=== PATIENT | female | born 1980 | race Caucasian/White ===

== ENCOUNTER → 2017-04-27 | Outpatient (CLI) | payer BC ==
[~2017-04-27] MED LIST: PRENTAB26 PO
== END | disposition home or self-care (01) ==
LOC: C.LABBC 11:44
PROVIDERS: ATTEND Nurse Practitioner Adult Health
DX: B95.0 Streptococcus, group A, as the cause of diseases classified elsewhere (principal)

== ENCOUNTER → 2018-01-04 | Outpatient (CLI) | payer BC | END | disposition home or self-care (01) | LOC: C.LABBC 12:02 | PROVIDERS: ATTEND Physician Assistant Medical | DX: J02.9 Acute pharyngitis, unspecified (principal) ==

== ENCOUNTER → 2018-01-04 | Outpatient (CLI) | payer BC | END | disposition home or self-care (01) | LOC: C.LABBC 09:28 | PROVIDERS: ATTEND Nurse Practitioner Adult Health | DX: Z00.00 Encounter for general adult medical examination without abnormal findings (principal) ==

== ENCOUNTER 2023-08-11 07:49 | Inpatient (IN) ==
[2023-08-11] MEDS ORDERED: LIDOCAINE 1% LOCAL 20 ML VIAL INFIL PRN (07:54)
[2023-08-11] MEDS ORDERED: OXYTOCIN 30 UNITS/NSS 30 UNITS/500 ML BAG IV PRN ×2 (07:54→08:19)
--- NOTE | 2023-08-11 07:58 | History & Physical Report ---
Date of Service August 11, 2023 Assessment & Plan (1) Elderly multigravida: (2) Encounter for assessment: Plan Will admit patient for induction of labor Fetus cat 1 Rh positive mother GBS negative Rubella equivocal; need MMR vaccine pp Monet balloon placement unsuccessful Epidural prn Pitocin as needed Patient in agreement Admission and Anticipated Discharge Date Admission Date: August 11, 2023 History of Present Illness Chief Complaint: IOL Primary Care Provider: Seferino Shaffer DO Ortega is a 43 y/o female with no significant PMHx who is currently at IUP 40 1/7 WGA with an AJITH 08/10/23 as determined by certain LMP who is here for IOL due to post dates. (+) movement (-) contractions (-) fluid loss (-) bloody show External FHT and external uterine monitors used * Category 1 tracing * Moderate FHT variability Had regular appointments since 1st trimester. OB Labs: Blood Type O Positive 07/22/23 Antibody Screen NEGATIVE 07/22/23 Hemoglobin 10.9 g/dl (12.0-16.0) L 07/22/23 Hematocrit 33.6 % (37.0-47.0) L 07/22/23 Mean Corpuscular Volume 80.2 fL (80.0-100.0) 07/22/23 Platelet Count 215 K/uL (130-400) 07/22/23 Rubella IgG Antibody Equivocal (Immune) L 01/07/23 Rapid Plasma Reagin Nonreactive (Nonreactive) 01/07/23 Hepatitis B Surface Antigen. NON-REACTIVE (NON-REACTIVE) 01/07/23 Hepatitis C Antibody (EIA) NON-REACTIVE (NON-REACTIVE) 01/07/23 HIV (1&2) Ag and Ab Confirmation NON-REACTIVE (NON-REACTIVE) 01/07/23 Glucose 1 Hour 50 gm Load 136 mg/dl (70-130) H 03/25/23 Maternal Serum Alpha Fetoprotein 29.5 ng/mL 03/25/23 OB Optional Labs: Chlamydia trachomatis RNA Not Detected (NotDetected) 01/07/23 Neisseria gonorrhoeae RNA Not Detected (NotDetected) 01/07/23 Thyroid Stimulating Hormone (TSH) 1.540 uIu/ml (0.300-4.500) 12/28/22 Alpha Fetoprotein Triple Screen SEE NOTE 03/25/23 Labs Reviewed: low risk panorama--[facility] genetic screening at [place] nl 2 hr gtt. Allergies Allergy/AdvReac Type Severity Reaction Status Date / Time No Known Drug Allergies Allergy Unknown Verified 08/11/23 08:45 Home Medications Medication Instructions Recorded Confirmed Type fluticasone propionate 50 1 sprays intranasal BID #1 g 11/28/18 08/11/23 History mcg/actuation nasal spray,suspension loratadine 10 mg tablet (Claritin) 10 mg PO DAILY PRN Allergy Symptoms 12/08/18 08/11/23 History prenat.vits,ara,[id number] 1 tab PO DAILY 10/21/21 08/11/23 History Patient History Medical History Allergic rhinitis Chronic idiopathic urticaria History of genital warts History of varicella Obesity (BMI 30-39.9) Seasonal rhinitis Surgical History History of tooth extraction Family History Unknown Multiple gestation Mother History of thyroid surgery Non-Hodgkin lymphoma Pancreatic cancer Aunt Diabetes Breast cancer Father Hypertension Denies family history of Ovarian cancer Prostate cancer Myocardial infarction Lung cancer Colorectal cancer Stroke Social History Smoking Status: Never smoker Second Hand Exposure: No; Do You Dip or Chew Tobacco: No; Tobacco Cessation Education Requested by Patient: No Hx Alcohol Use: No Hx Substance Use: No Preferred Language: Panamanian Communication Ability: Effective Visual Impairment: Limited Hearing Ability: Normal Social Media Intern Required: No Beliefs That Will Affect Care: None marital status: marital status details: Jatin Caba (41) [phone] Current Living Situation: Spouse and Family Current Living Situation Comment: lives with spouse, 2 children current occupational status: employed 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 Date GA wks Lbr Lgth wt Sex Type del Anes Place Del Prov ? Comment 08/24/09 40 15 6-12 M Epid ural [facility] Dr. Alvarez No 09/23/11 41 3 8-2 M Epidu ral [facility] Dr. Mahajan No 10/30/21 8 Aborted-Spontaneous [employer]ER History Last menstrual period: Yes Menstrual reliability: definite Flow: normal Menstrual regularity: regular Monthly: Yes Age at menarche: 14 On control pills at conception: No Date of positive home test: 12/05/22 Menstrual history comments: cycles 28 days Details: last pap 02/27/[address] Mahajan Review of Systems no fever, no chills and no sweats Denies changes in vision. Denies shortness of breath or respiratory difficulty. no chest pain and no palpitations no dysuria no headache(s) Physical Exam Physical Exam: General: Alert, oriented x3. Afebrile. No acute distress. Eyes: Pupils equal and reactive to light bilaterally. Extraocular movement intact bilaterally. Cardiac: Regular rate and rhythm, no murmurs/rubs/gallops. Respiratory: Clear to auscultation bilaterally a/p, no wheezes/rales/rhonchi. No increased work of breathing. Symmetrical chest rise. No respiratory distress. Abdomen: Gravid; FHR baseline 130 - 135 bpm; Position: Vertex Pelvic: 1 / thick / -[address] Mahajan Lower Extremities: Unilateral LE swelling in right leg with calf tenderness with palpation. No swelling in left LE but does have some calf tenderness that is in lesser intensity compared to right LE. Supervising Physician Co-Signing Physician Notes Resident Physician Supervision Note: I interviewed and examined the patient. Discussed with [Name of resident] and agree with findings and plan as documented in the note. Any exceptions or clarifications are listed here: [None] Documented By: Bimal Mahajan MD, FACOG
[2023-08-11 08:25] LABS: Hematocrit (blood only) 34.1 % (37.0-47.0); Hemoglobin 11.2 g/dl (12.0-16.0); Mean Corpuscular Hgb Conc 32.8 g/dL (32.0-36.0); Mean Corpuscular Volume 79.3 fL (80.0-100.0); Mean Platelet Volume 12.2 fL (9.4-12.4); Platelet Count 207 K/uL (130-400); RDW Coefficient of Variation 13.9 % (11.5-14.5); RDW Standard Deviation 39.5 fL (36.4-46.3); White Blood Count 6.55 K/ul (4.8-10.8)
--- NOTE | 2023-08-11 08:31 | Obstetrical Progress Note ---
Date of Service August 11, 2023 Assessment & Plan Admission and Anticipated Discharge Date Admission Date: August 11, [address] a cervical Monet under sterile conditions but the bulb kept falling out she is 1 cm and thick will start Pitocin estimated weight 7-8 pounds PG Care Time/CCT Total # of Minutes Spent Total Time Spent with Patient: Total time spent is greater than 50% in coordination of care (as documented) at patient's floor/unit and/or counseling patient: Coding Level of Care Code None
[2023-08-11] MEDS: LACTATED RINGER'S 1,000 ML IV PRN (08:56)
[2023-08-11] MEDS: OXYTOCIN 30 UNITS/NSS 30 UNITS/500 ML BAG IV PRN (08:57)
[2023-08-11] MEDS: LIDOCAINE 2%/EPINEPHRINE 1:200,000 20 ML PF ONE (16:35)
[2023-08-11] MEDS: fentANYL 2 MCG/ML BUPIVacaine 0.125%-NSS 100ML BAG ONE (16:35)
[2023-08-11] MEDS: BUPIVACAINE 0.25% PF 30 ML VIAL ONE (16:35)
[2023-08-11] MEDS ORDERED: NALBUPHINE HCL 5 MG in SYRINGE 0 ML IV PRN (16:40)
[2023-08-11] MEDS ORDERED: LIDOCAINE 2% MPF LOCAL 5 ML VIAL EPI PRN (16:40)
[2023-08-11] MEDS ORDERED: NALOXONE HCL 1 MG in SODIUM CHLORIDE 0.9% 1,000 ML IV PRN (16:40)
[2023-08-11] MEDS ORDERED: SODIUM CHLORIDE 0.9% PF INJ 10 ML VIAL EPI PRN (16:40)
[2023-08-11] MEDS ORDERED: BUPIVACAINE 0.25% PF 30 ML VIAL EPI PRN (16:40)
[2023-08-11] MEDS ORDERED: ROPIVACAINE 0.5% PF 5 MG/ML 20 ML VIAL EPI PRN (16:40)
[2023-08-11] MEDS ORDERED: fentaNYL citrate PF 100 MCG/2 ML VIAL EPI PRN (16:40)
[2023-08-11] MEDS ORDERED: ePHEDrine sulfate 50 MG/ML AMP IV PRN (16:40)
[2023-08-11] MEDS ORDERED: ONDANSETRON INJ 2 MG/ML 2 ML VIAL IV PRN (16:40)
[2023-08-11] MEDS ORDERED: diphenhydrAMINE 50 MG/ML VIAL IV PRN (16:40)
[2023-08-11] MEDS ORDERED: NALOXONE HCL 0.4 MG/1 ML VIAL/CARP IV PRN (16:40)
--- NOTE | 2023-08-11 16:40 | Anesthesiology Consultation ---
Date of Service August 11, 2023 Assessment & Plan Chart Review Chart Review: Patient NOT seen in Pre Admission Testing and Acceptable Risk for Labor Epidural Consults Requested none ASA ASA2 Proposed Anesthesia Anesthesia Type: Labor Epidural Risk / Benefits Reviewed With: PT / POA / Parent / Guardian, Accepts Plan and Informed Consent Obtained History Height/Weight Height: 5 ft 3 in Weight: 94.801 kg Allergies Allergy/AdvReac Type Severity Reaction Status Date / Time No Known Drug Allergies Allergy Unknown Verified 08/11/23 08:45 Medications Home Medications Medication Instructions Recorded Confirmed Last Taken fluticasone propionate 50 1 sprays intranasal BID #1 g 11/28/18 08/11/23 08/04/23 mcg/actuation nasal 0900 spray,suspension loratadine 10 mg tablet (Claritin) 10 mg PO DAILY PRN Allergy Symptoms 12/08/18 08/11/23 08/11/23 0700 prenat.vits,ara,[id number]-[id number]-[id number] 1 tab PO DAILY 10/21/21 08/11/23 08/11/23 0700 Active Medications Generic Name Dose Route Start Last Admin Trade Name Freq PRN Reason Stop Dose Admin Lactated Ringer's 1,000 mls @ 125 mls/hr 08/11/23 07:54 08/11/23 15:38 Lr IV 08/13/23 07:53 999 mls/hr .Q8H PRN Administration L&D Protocol Protocol Oxytocin 30 units in 500 mls @ 10 mls/hr 08/11/23 08:25 08/11/23 15:11 Pitocin 30 Units/Nss IV 08/13/23 08:24 0.6 units/hr .Q24H PRN 10 mls/hr Labor Induction/Augmentation Titration Protocol 0.6 UNITS/HR Past Medical History Medical History Allergic rhinitis Chronic idiopathic urticaria History of genital warts History of varicella Obesity (BMI 30-39.9) Seasonal rhinitis Exercise / Class Metabolic Activity II 4-5 Yardwork/Stairs/Walk up hill Past Family History Family History Unknown Multiple gestation Mother History of thyroid surgery Non-Hodgkin lymphoma Pancreatic cancer Aunt Diabetes Breast cancer Father Hypertension Denies family history of Ovarian cancer Prostate cancer Myocardial infarction Lung cancer Colorectal cancer Stroke Past Surgical History Surgical History History of tooth extraction Past Anesthesia History No Hx of Anesthesia Complications and No Family Hx of Anesthesia Complications History of PONV No Hx of PONV and No Hx of Motion Sickness Social History Smoking Status: Never smoker Do You Dip or Chew Tobacco: No Hx Alcohol Use: No Hx Substance Use: No Physical Exam Vital Signs Last Vital Signs Temp 36.9 C 08/11/23 13:05 Pulse 107 H 08/11/23 16:36 Resp 16 08/11/23 13:05 BP 127/77 08/11/23 16:36 Pulse Ox 99 08/11/23 16:35 ENMT Mouth: no dentition abnormality Thyromental Distance: > or= 3.5 Finger Breadths Mallampati Class: II Neck normal visual inspection Respiratory normal respiratory effort Auscultation: lungs clear to auscultation bilaterally Cardiovascular Rate/Rhythm: regular rate and regular rhythm Psychiatric Orientation: alert Testing Laboratory Results 08/11/23 08:02 Blood Type Cancelled 08/11/23 08:02 Blood Type O Positive 08/11/23 08:02 Antibody Screen Cancelled 08/11/23 08:02 Antibody Screen NEGATIVE 08/11/23 08:02
[2023-08-11] MEDS: ACETAMINOPHEN 325 MG TAB PO PRN (19:12)
[2023-08-11] MEDS: fentaNYL citrate PF 100 MCG/2 ML VIAL ONE (19:16)
[2023-08-11] MEDS: ePHEDrine sulfate 50 MG/ML AMP ONE (19:16)
[2023-08-11] MEDS: SODIUM CHLORIDE 0.9% PF INJ 10 ML VIAL ONE (19:18)
[2023-08-11] MEDS: fentaNYL citrate PF 100 MCG/2 ML VIAL EPI STA (20:05)
[2023-08-11] MEDS: LIDOCAINE 2%/EPINEPHRINE 1:200,000 20 ML PF EPI STA (20:05)
[2023-08-11] MEDS: BUPIVACAINE 0.25% PF 30 ML VIAL EPI STA (20:05)
[2023-08-11] MEDS: SODIUM CHLORIDE 0.9% PF INJ 10 ML VIAL EPI STA (20:06)
[2023-08-12] MEDS ORDERED: GENTAMICIN CONSULT ACTIVE PRN (00:36)
--- NOTE | 2023-08-12 00:40 | Labor Progress Brief Note ---
Date of Service August 12, 2023 Over the last hour the patient has had some increased shaking her temperature is afebrile however the patient feels warm she is also having a tachycardia approximately 180 with intermittent variable decelerations. Her contraction pattern is good checked her she is 6 cm 0 station so she is making recently rapid change at this stage despite a lack of temperature on the exam and she palpates is quite warm clinically so we will start antibiotics with an elevated tachycardia and clinically she feels warm for chorioamnionitis I discussed that the tracing while not ideal and hoping for rapid progress as this is her third baby with 2 prior vaginal deliveries will monitor very closely Assessment & Plan Admission and Anticipated Discharge Date Admission Date: August 11, 2023 Results & Data Vital Signs (Past 12 Hours) Vital Signs Temp Pulse Resp BP Pulse Ox 08/12/23 00:36 123 H 99 08/12/23 00:31 122 H 97 08/12/23 00:26 124 H 98 08/12/23 00:21 115 H 98 08/12/23 00:16 98 08/12/23 00:16 116 H 08/12/23 00:16 115 H 136/66 08/12/23 00:11 111 H 99 08/12/23 00:06 116 H 99 08/12/23 00:05 18 08/12/23 00:05 98.2 F 18 08/12/23 00:01 113 H 98 08/12/23 00:00 108 H 133/63 08/11/23 23:56 112 H 99 08/11/23 23:51 110 H 99 08/11/23 23:48 121 H 135/61 08/11/23 23:46 112 H 100 08/11/23 23:45 119 H 82 L 08/11/23 23:42 22 08/11/23 23:42 99.3 F 22 08/11/23 23:41 127 H 99 08/11/23 23:36 123 H 100 08/11/23 23:31 127 H 169/98 H 100 08/11/23 23:26 133 H 97 08/11/23 23:22 133 H 92 08/11/23 23:21 134 H 100 08/11/23 23:16 146 H 99 08/11/23 23:14 148 H 92 08/11/23 23:11 132 H 93 08/11/23 23:10 22 08/11/23 23:10 98.2 F 22 08/11/23 23:09 119 H 91 08/11/23 23:06 103 H 100 08/11/23 23:01 101 H 108/57 L 100 08/11/23 22:56 91 H 100 08/11/23 22:51 94 H 100 08/11/23 22:46 99 08/11/23 22:46 98 H 08/11/23 22:46 98 H 127/61 08/11/23 22:44 101 H 91 08/11/23 22:41 98 H 98 08/11/23 22:36 93 H 100 08/11/23 22:31 97 H 99 08/11/23 22:30 95 H 114/63 08/11/23 22:26 97 H 98 08/11/23 22:21 99 H 100 08/11/23 22:16 99 08/11/23 22:16 117 H 08/11/23 22:16 114 H 138/73 90 08/11/23 22:11 102 H 100 08/11/23 22:10 94 H 88 L 08/11/23 22:06 96 H 100 08/11/23 22:01 91 H 119/59 L 100 08/11/23 21:56 84 98 08/11/23 21:51 90 97 08/11/23 21:46 85 97 08/11/23 21:45 85 109/58 L 08/11/23 21:41 85 96 08/11/23 21:36 88 96 08/11/23 21:31 86 97 08/11/23 21:30 90 108/56 L 92 08/11/23 21:26 95 H 96 08/11/23 21:21 89 97 08/11/23 21:16 84 97 08/11/23 21:15 87 109/61 08/11/23 21:11 108 H 99 08/11/23 21:06 98 H 99 08/11/23 21:01 98 08/11/23 21:01 93 H 08/11/23 21:01 100 H 112/65 08/11/23 20:56 86 97 08/11/23 20:51 98 H 97 08/11/23 20:47 97.7 F 110 H 18 125/70 08/11/23 20:46 107 H 98 08/11/23 20:41 104 H 97 08/11/23 20:37 110 H 99 08/11/23 20:32 108 H 98 08/11/23 20:30 112 H 103/66 08/11/23 20:26 102 H 98 08/11/23 20:21 106 H 99 08/11/23 20:17 110 H 99 08/11/23 20:15 102 H 126/69 08/11/23 20:12 101 H 99 08/11/23 20:07 108 H 99 08/11/23 20:02 105 H 99 08/11/23 20:00 115 H 136/65 08/11/23 19:57 106 H 99 08/11/23 19:52 106 H 99 08/11/23 19:47 105 H 99 08/11/23 19:46 101 H 135/72 08/11/23 19:42 99 H 98 08/11/23 19:37 106 H 98 08/11/23 19:32 95 H 123/71 100 08/11/23 19:27 103 H 100 08/11/23 19:22 99 H 99 08/11/23 19:17 101 H 98 08/11/23 19:12 105 H 99 08/11/23 19:07 90 99 08/11/23 19:02 96 H 98 08/11/23 19:00 98.2 F 18 08/11/23 19:00 98 H 135/74 08/11/23 18:57 101 H 99 08/11/23 18:52 99 H 98 08/11/23 18:47 87 98 08/11/23 18:45 86 103/58 L 91 08/11/23 18:42 87 98 08/11/23 18:37 90 98 08/11/23 18:32 88 98 08/11/23 18:30 78 118/58 L 08/11/23 18:27 85 98 08/11/23 18:22 85 98 08/11/23 18:17 94 H 99 08/11/23 18:16 83 119/59 L 08/11/23 18:11 80 98 08/11/23 18:06 92 H 99 08/11/23 18:03 95 H 91 08/11/23 18:01 89 100 08/11/23 18:00 98.3 F 08/11/23 18:00 86 109/56 L 08/11/23 17:56 85 100 08/11/23 17:51 86 98 08/11/23 17:46 87 96 08/11/23 17:45 81 121/67 08/11/23 17:40 94 H 97 08/11/23 17:36 86 98 08/11/23 17:32 86 91 08/11/23 17:31 86 114/69 08/11/23 17:30 84 96 08/11/23 17:26 90 96 08/11/23 17:20 87 96 08/11/23 17:15 86 117/65 97 08/11/23 17:10 88 97 08/11/23 17:05 95 H 99 08/11/23 17:01 98.4 F 16 08/11/23 17:01 83 120/62 08/11/23 17:00 87 97 08/11/23 16:55 82 97 08/11/23 16:50 88 96 08/11/23 16:45 115 H 99 08/11/23 16:42 105 H 129/61 08/11/23 16:40 96 H 127/66 98 08/11/23 16:38 96 H 127/69 08/11/23 16:36 107 H 127/77 08/11/23 16:35 104 H 99 08/11/23 16:34 93 H 141/83 H 08/11/23 16:32 96 H 152/82 H 08/11/23 16:30 96 H 98 08/11/23 16:25 90 95 08/11/23 16:21 90 171/94 H 08/11/23 16:20 91 H 100 08/11/23 15:23 82 161/89 H 08/11/23 15:11 91 H 163/106 H 08/11/23 13:37 89 143/79 H 08/11/23 13:23 93 H 144/82 H 08/11/23 13:13 91 H 141/80 H 08/11/23 13:05 98.4 F 16 Coding Level of Care Code None
[2023-08-12] MEDS ORDERED: AMPICILLIN SOD 1 GM VIAL IV SCH ×2 (00:45→03:30)
[2023-08-12] MEDS: AMPICILLIN 2,000 MG in SODIUM CHLOR 0.9% MINI-B 100 ML IV SCH ×2 (01:03→07:45)
[2023-08-12] MEDS: fentANYL 2 MCG/ML BUPIVacaine 0.125%-NSS 100ML BAG EPI PRN (01:11)
[2023-08-12] MEDS: DEXTROSE 5% IV STA (01:38)
[2023-08-12] MEDS: GENTAMICIN SULFATE IV STA (01:38)
--- NOTE | 2023-08-12 03:17 | Delivery Summary ---
Vaginal Delivery Summary Date of Service August 12, 2023 Vaginal Delivery Summary and 2nd Degree LAC Spontaneous vaginal delivery the patient rapidly progressed to fully dilated and then delivered a baby in occiput anterior position on 1 push she had some thin meconium at the end no nuchal cord but there was a body cord baby was delivered without excess effort easy delivery live vigorous female infant cord clamped and cut cord gases obtained cord blood obtained placenta removed with traction IV Pitocin started second-degree tear repaired with 3-0 Vicryl sponge and instrument counts correct estimated blood loss 100 mL MNPG Vaginal Delivery Charge Delivery Type Details: and 2nd Degree LAC
[2023-08-12 03:19] LABS: Base Excess Cord Arterial Bld -2.5 mEq/L (-9-1.8); Base Excess Cord Venous Blood -2.9 mEq/L (-7.7-1.9); CO2 Cord Arterial Blood 55 mmHg (39.1-73.5); Cord Venous Blood HCO3 21 mmol/L (18.4-26.8); Cord Venous Blood PCO2 33 mmHg (30.4-57.2); Cord Venous Blood PO2 30 mmHg (14.1-43.3); Cord Venous Blood pH 7.41 (7.20-7.44); HCO3 Cord Arterial Blood 25 mmol/L (19.7-28.5); O2 Saturation Cord Venous Bld 65.5 % (<68); Oxygen Sat Cord Arterial Blood < 60.0 % (<60); PO2 Cord Arterial Blood < 20 mmHg (4.1-31.7); pH Cord Arterial Blood 7.27 (7.1-7.38)
[2023-08-12] MEDS ORDERED: OXYTOCIN 30 UNITS/NSS 30 UNITS/500 ML BAG IV PRN (03:36)
[2023-08-12] MEDS ORDERED: ACETAMINOPHEN 325 MG TAB PO PRN (03:36)
[2023-08-12] MEDS ORDERED: HYDROCORTISONE ACETATE 25 MG SUPP PR PRN (03:36)
[2023-08-12] MEDS ORDERED: Nursing to Pharmacy Communication SCH (04:00)
--- NOTE | 2023-08-12 04:49 | Anesthesia Procedure Note ---
Date of Service August 12, 2023 Anesthesia Post Epidural Note Vital Signs Vital Signs: Temp Pulse Resp BP Pulse Ox 37.2 C 101 H 18 119/57 L 98 08/12/23 02:29 08/12/23 04:45 08/12/23 04:15 08/12/23 04:45 08/12/23 02:41 Pain Intensity Abdomen: Pain Intensity: 9 Notes Mental Status: alert / awake / arousable Nausea / Vomiting: adequately controlled Pain: adequately controlled Airway Patency, RR, SpO2: stable & adequate BP & HR: stable & adequate Hydration State: stable & adequate Neuraxial Anesthesia: was administered and sensory block is resolving Anesthetic Complications: no major complications apparent and Pt Satisfied with anesthetic care Epidural: Removed without complications and With tip intact
[2023-08-12] MEDS: BENZOCAINE 20% SPRY 85 APPLN/85 GM CAN EXT PRN (04:55)
[2023-08-12] MEDS: IBUPROFEN 600 MG TAB PO PRN (04:55)
[2023-08-12] MEDS: DIPHTHER/TETAN/PERTUS Vaccine (Tdap, Adol/Adult) 0.5mL IM ONE (04:56)
[2023-08-12] MEDS ORDERED: SODIUM CHLORIDE 0.9% 250 ML IV PRN (05:29)
[2023-08-12 08:15] LABS: Creatinine Clr Calc Pharmacy 131.6 ml/min; Est GFR (African American) 129.6 ml/min; Est GFR (Non-African American) 111.8 ml/min
[2023-08-12] MEDS: DOCUSATE SODIUM 100 MG CAP PO SCH (08:41)
[2023-08-12] MEDS: PRENATAL VITAMIN 1 TAB PO SCH (08:41)
[2023-08-12] MEDS: MEASLES, MUMPS & RUBELLA VIRUS VACCINE (MMR) VIAL SQ ONE (13:27)
--- NOTE | 2023-08-12 15:38 | Pharmacy Report ---
Pharmacy PK ABX Note - Date of Service August 12, 2023 - Assessment and Plan Assessment 43 year old F receiving gentamicin/ampicillin for treatment of infection. Day # 1 of antimicrobial therapy. Plan * Maintenance dose: gentamicin 475 mg IV every 24 hours * Will order a level if continued beyond 48 hours Pharmacy will continue to follow and will adjust dose/frequency as necessary. Thank you. Pharmacy has transitioned to AUC monitoring for vancomycin. AUC/HOWIE is the preferred PK/PD target and is associated with decreased risk of nephrotoxicity compared to traditional trough targets.
[2023-08-13] MEDS: GENTAMICIN SULFATE IV SCH (02:16)
[2023-08-13] MEDS: DEXTROSE 5% IV SCH (02:16)
[2023-08-13 06:56] LABS: Hemoglobin 10.1 g/dl (12.0-16.0); Mean Corpuscular Hgb Conc 32.6 g/dL (32.0-36.0); Mean Corpuscular Volume 79.7 fL (80.0-100.0); Platelet Count 176 K/uL (130-400); RDW Coefficient of Variation 14.3 % (11.5-14.5); RDW Standard Deviation 41.1 fL (36.4-46.3); Red Blood Count 3.89 M/uL (4.20-5.40); White Blood Count 12.67 K/ul (4.8-10.8)
[2023-08-13 07:18] LABS: Creatinine Clr Calc Pharmacy 157.3 ml/min; Est GFR (African American) 137.5 ml/min; Est GFR (Non-African American) 118.6 ml/min
--- NOTE | 2023-08-13 08:37 | Obstetrical Progress Note ---
Date of Service <Verena Lora MD - Last Filed: 08/13/23 08:37> August 13, 2023 Assessment & Plan <Verena Lora MD - Last Filed: 08/13/23 08:37> (1) Encounter for assessment: Plan Patient with the above mentioned history and findings was evaluated at bedside and found awake, alert, oriented in all spheres, afebrile, and in no acute distress. Vital signs showed no fever and blood pressures remained stable. She is s/p 24 hours of amp/Gent for management of chorioamnionitis. Her blood type is O pos and today's hemoglobin is adequate at 10.1 g/dL. Serologies are negative for GBS and patient is Rubella equivocal (given MMR vaccine prior to dh). Overall, patient is doing well clinically and meeting the desired milestone for her course. Therefore, will discharge patient today. Patient was counselled on discharge instructions. She is to make an appointment with her OB for 6 weeks after discharge for follow up evaluation. All questions were answered. <Nura Kaufman MD - Last Filed: 08/13/23 08:39> (1) Encounter for assessment: Subjective <Verena Lora MD - Last Filed: 08/13/23 08:37> Inocencia is a 43 y/o female who is now PPD # 1 following at 40+ weeks. Reports feeling well overall this morning. Refers mild abdominal cramping & 2/10 pain well managed on analgesics. Voiding spontaneously. Tolerating meals overnight and able to ambulate some. Has passed has and has had bm. Some persistent lochia with some improvement this morning. . Constitutional: no fever, no chills or no sweats Denies shortness of breath or difficulty breathing Cardiovascular: no chest pain or no palpitations Breast: no breast pain Genitourinary (female): no dysuria Neurologic: no headache(s) Denies changes in vision Physical Exam <Verena Lora MD - Last Filed: 08/13/23 08:37> General: Alert. Oriented to person, time, and place. Afebrile. No acute distress. Cardiac: Regular rate and rhythm, no murmurs/rubs/gallops. Respiratory: Clear to auscultation bilaterally a/p, no wheezes/rales/rhonchi. No increased work of breathing. Symmetrical chest rise. No respiratory distress. Abdomen: Soft, nontender, nondistended. Bowel sounds present. Uterus: Uterine fundus firm, non tender, and palpable below umbilicus. Lower Extremities: Mild bilateral LE swelling. No deep calf pain. Charles's negative bilaterally. Psych: Euthymic affect. Mood and affect congruence. Regular speech rate and content. Results & Data <Verena Lora MD - Last Filed: 08/13/23 08:37> Vital Signs (Past 12 Hours) Vital Signs Temp Pulse Resp BP Pulse Ox O2 Del Method 08/13/23 01:15 36.6 C 83 18 124/74 98 Room Air Supervising Physician <Nura Kaufman MD - Last Filed: 08/13/23 08:39> Co-Signing Physician Notes Patient seen with resident and agree with the above findings and plan. Stable for discharge as preferred
[2023-08-13] MEDS ORDERED: bisacodyL 5 MG TABEC PO SCH (20:00)
[2023-08-14] MEDS ORDERED: bisacodyL 10 MG SUPP PR PRN (03:36)
== END 2023-08-13 16:15 | disposition home or self-care (01) | DRG 805 ==
LOC: 4S1 07:49 → 4E2 08-12 05:32
DX: O70.1 Second degree perineal laceration during delivery; O48.0 Post-term pregnancy; O76 Abnormality in fetal heart rate and rhythm complicating labor and delivery; O41.1230 Chorioamnionitis, third trimester, not applicable or unspecified; Z3A.40 40 weeks gestation of pregnancy; Z37.0 Single live birth